=== PATIENT | female | born 1995 | race Caucasian/White ===

== ENCOUNTER 2016-06-25 12:02 | Emergency (ER) | payer OTHER, BC ==
[2016-06-25 12:20] VITALS: BP 132/83
--- NOTE | 2016-06-25 12:57 | UC ---
Allergic Reaction HPI - HPI Summary HPI Summary: SIX DAYS OF SINUS CONGESTION, NONPRODUCTIVE COUGH, NO FEVER. NO SORE THROAT. HAD AMOXICILLIN TAB, TOOK ONE TAB YESTERDAY. LAST NIGHT DEVELOPED ITCHY RASH ALL OVER BODY. NO THROAT TIGHTNESS OR SHORTNESS OF BREATH. - History of Current Complaint Chief Complaint: UCRespiratory Stated Complaint: SINUS ISSUE RASH Time Seen by Provider: 06/25/16 12:19 Hx Obtained From: Patient Hx Last Menstrual Period: 06/23/16 Onset/Duration: Sudden Onset, Lasting Hours, Still Present Severity Initially: Moderate Severity Currently: Moderate Location: Diffuse Character: Pruritus Associated Signs And Symptoms: Positive: Rash. Negative: Difficulty Breathing, Hoarseness, Lightheadedness, Throat Tightening - Related Hx Possible Reaction To: Medications - Allergies/Home Medications Allergies/Adverse Reactions: Allergies Allergy/AdvReac Type Severity Reaction Status Date / Time No Known Allergies Allergy Verified 07/10/15 19:44 Home Medications: Home Medications Amoxicillin (*) [Amoxicillin 875 MG (*)] 875 mg PO BID 06/25/16 [History Confirmed 06/25/16] PMH/Surg Hx/FS Hx/Imm Hx Previously Healthy: Yes Endocrine History Of: Denies: Diabetes, Thyroid Disease Cardiovascular History Of: Denies: Cardiac Disorders, Hypertension, Pacemaker/ICD Respiratory History Of: Reports: Asthma Denies: COPD GI/ History Of: Denies: Gastroesophageal Reflux, Renal Disease Neurological History Of: Denies: CVA, Dementia, Seizures Other History Of: Negative For: Anticoagulant Therapy - Surgical History Surgical History: None - Family History Known Family History: Positive: Diabetes - Social History Occupation: Employed Full-time Lives: With Family Alcohol Use: None Substance Use Type: None Smoking Status (MU): Never Smoked Tobacco Review of Systems Constitutional: Negative Skin: Rash Eyes: Negative ENT: Nasal Discharge Respiratory: Cough Cardiovascular: Negative Gastrointestinal: Negative Genitourinary: Negative Motor: Negative Neurovascular: Negative Musculoskeletal: Negative Neurological: Negative Psychological: Negative All Other Systems Reviewed And Are Negative: Yes Physical Exam Triage Information Reviewed: Yes Appearance: Well-Appearing, No Pain Distress, Well-Nourished Vital Signs: Initial Vital Signs Temp 97.2 F 06/25/16 12:16 Pulse 121 06/25/16 12:16 Resp 18 06/25/16 12:16 BP 132/83 06/25/16 12:16 Pulse Ox 99 06/25/16 12:16 ENT: Positive: Normal ENT inspection, Pharynx normal, Nasal congestion, TMs normal. Negative: TM bulging, TM dull Dental Exam: Normal Neck exam: Normal Neck: Positive: Supple, Nontender, No Lymphadenopathy Respiratory Exam: Normal Respiratory: Positive: Chest non-tender, Lungs clear, Normal breath sounds, No respiratory distress, No accessory muscle use Cardiovascular Exam: Normal Cardiovascular: Positive: RRR, No Murmur, Pulses Normal Abdominal Exam: Normal Musculoskeletal Exam: Normal Musculoskeletal: Positive: Strength Intact Neurological Exam: Normal Psychological Exam: Normal Psychological: Positive: Normal Response To Family Allergic Reaction Course/Dx - Differential Dx/Diagnosis Differential Diagnosis/HQI/PQRI: Local Allergic Reaction, Jimenez-Johnsons Syndrome, Urticaria Provider Diagnoses: UPPER RESPIRATORY INFECTION. GENERALIZED ALLERGIC MEDICATION REACTION: AMOXICILLIN Discharge - Discharge Plan Condition: Stable Disposition: HOME Prescriptions: predniSONE TAB* [Deltasone TAB*] 10 mg PO DAILY #28 tab Patient Education Materials: Upper Respiratory Infection (ED), Antibiotic Medication Allergy (ED) Referrals: Mariola Cross MD [Primary Care Provider] -
== END 2016-06-25 12:57 | disposition home or self-care (01) ==
LOC: UCEAST 12:02
DX: J06.9 Acute upper respiratory infection, unspecified (principal); L27.0 Generalized skin eruption due to drugs and medicaments taken internally; T36.0X5A Adverse effect of penicillins, initial encounter; Y92.9 Unspecified place or not applicable; J45.909 Unspecified asthma, uncomplicated
CPT/HCPCS: 99212; G0463

== ENCOUNTER 2017-04-28 09:39 | Emergency (ER) | payer OTHER, BC ==
[2017-04-28 10:11] VITALS: BP 133/62
[2017-04-28] MEDS ORDERED: Ketorolac INJ* 60 MG/2 ML VIAL IM ONE (10:18)
[2017-04-28] MEDS ORDERED: Clindamycin CAP* 150 MG PO ONE (10:20)
[2017-04-28] MEDS ORDERED: Dexamethasone Oral Solution* 1 MG/ML 10 ML UDC (10 MG) PO ONE (10:20)
--- NOTE | 2017-04-28 10:22 | ED ---
Throat Pain/Nasal Congestion - HPI Summary HPI Summary: 21F presents with sore throat since last night. She states is is mostly on right side and radiates to right ear. She admits to fever. She has been having difficulty swallowing but is still able to do so. she denies any SOB. She has been taking tyenlol for her fever. She denies any sinus congestion. She denies any cough. She admits to fatigue. She denies any abdominal pain, nausea or vomiting. She has history of strept. - History of Current Complaint Chief Complaint: UCGeneralIllness Time Seen by Provider: 04/28/17 10:12 - Allergies/Home Medications Allergies/Adverse Reactions: Allergies Allergy/AdvReac Type Severity Reaction Status Date / Time amoxicillin Allergy Intermediate Rash Verified 04/28/17 10:06 Home Medications: Home Medications Acetaminophen [Tylenol Extra Strength] 2 tab PO Q12HR PRN 04/28/17 [History Confirmed 04/28/17] PMH/Surg Hx/FS Hx/Imm Hx Endocrine/Hematology History: Denies: Hx Anticoagulant Therapy, Hx Diabetes, Hx Thyroid Disease Cardiovascular History: Denies: Hx Hypertension, Hx Pacemaker/ICD Respiratory History: Reports: Hx Asthma Denies: Hx Chronic Obstructive Pulmonary Disease (COPD) History: Denies: Hx Renal Disease Neurological History: Denies: Hx Dementia, Hx Seizures Psychiatric History: Denies: Hx Substance Abuse - Surgical History Surgery Procedure, Year, and Place: denies Infectious Disease History: No Infectious Disease History: Reports: Hx Shingles Denies: Hx Clostridium Difficile, Hx Hepatitis, Hx Human Immunodeficiency Virus (HIV), Hx of Known/Suspected MRSA, Hx Tuberculosis, Traveled Outside the [place] in Last 30 Days - Family History Known Family History: Positive: Diabetes - Social History Alcohol Use: None Substance Use Type: Reports: None Smoking Status (MU): Never Smoked Tobacco Review of Systems Positive: Fever Positive: Sore Throat Negative: Chest Pain Negative: Shortness Of Breath All Other Systems Reviewed And Are Negative: Yes Physical Exam Triage Information Reviewed: Yes Vital Signs On Initial Exam: Initial Vitals Temp Pulse Resp BP Pulse Ox 98.4 F 131 22 133/62 98 04/28/17 10:06 04/28/17 10:06 04/28/17 10:06 04/28/17 10:06 04/28/17 10:06 Vital Signs Reviewed: Yes Appearance: Positive: Well-Appearing Skin: Positive: Warm, Dry Head/Face: Positive: Normal Head/Face Inspection Eyes: Positive: Normal, EOMI, LITZY, Conjunctiva Clear ENT: Positive: Pharyngeal erythema, TMs normal, Tonsillar swelling - +2, Uvula midline, Other - soft palate symmetric, tonsils asymmetric right>left. Negative : Tonsillar exudate, Trismus, Muffled voice Neck: Positive: Supple, Nontender, No Lymphadenopathy Respiratory/Lung Sounds: Positive: Clear to Auscultation, Breath Sounds Present Cardiovascular: Positive: Normal, RRR Abdomen Description: Positive: Nontender, Soft Bowel Sounds: Positive: Present Musculoskeletal: Positive: Normal Neurological: Positive: Normal Psychiatric: Positive: Normal Diagnostics - Vital Signs Vital Signs Temp Pulse Resp BP Pulse Ox 04/28/17 10:06 98.4 F 131 22 133/62 98 - Laboratory Lab Statement: Any lab studies that have been ordered have been reviewed, and results considered in the medical decision making process. EENT Course/Dx - Course Course Of Treatment: 21F presents with sore throat since last night. She states is is mostly on right side and radiates to right ear. She admits to fever. She has been having difficulty swallowing but is still able to do so. she denies any SOB. She has been taking tyenlol for her fever. She denies any sinus congestion. She denies any cough. She admits to fatigue. She denies any abdominal pain, nausea or vomiting. She has history of strept. lungs CTA. uvula still midline, right tonsils asymmetric, no trimsus, managing airway well. soft palate symmetric. looks like could be peristonsillar cellulitis as this point. due to location (urgent care) will not attempt to drain it. gave dose of clindamycin and decadron. patient feeling better. strept pos. spoke with dr mueller who will see in office today as may be peristonsillar abscess. at discharge still managing airway well. will have continue clindamycin and prednisone. patient understand and agrees wiht plan. - Differential Diagnoses Differential Diagnoses: URI/Bronchitis, Other - strept, peritonsillar abscess and cellulitis - Diagnoses Provider Diagnoses: Streptococcal sore throat Discharge - Discharge Plan Condition: Stable Disposition: HOME Prescriptions: Clindamycin HCl 300 mg PO TID #29 capsule Magic Mouth Was-DAISY/MAAL/LIDO* 5 ml SWISH SPIT QID #100 ml predniSONE TAB* [Deltasone TAB*] 20 mg PO BID #9 tab Patient Education Materials: Strep Throat (ED) Referrals: Mariola Cross MD [Primary Care Provider] - Ivan Mueller MD [Medical Doctor] - Additional Instructions: You have appointment at [address] [place] [address] at 3:30pm arrive at 3:[address] mueller Take clindamycin three times a day for 10 days Take prednisone twice a day for 5 days Magic mouthwash 5ml swish and spit can use 4x a day Take Tylenol or ibuprofen for pain every 6 hours Return to ED if develop any new or worsening symptoms
[2017-04-28] MEDS ORDERED: Dexamethasone IV* 4 MG/ML 1 ML (4 MG) IM ONE (10:27)
== END 2017-04-28 10:59 | disposition home or self-care (01) ==
LOC: UCEAST 09:39
DX: J02.0 Streptococcal pharyngitis (principal); J45.909 Unspecified asthma, uncomplicated; Z88.1 Allergy status to other antibiotic agents
CPT/HCPCS: 87651; 99212; A9270-GY; G0463; J1100; J1885

== ENCOUNTER 2017-07-03 16:42 | Emergency (ER) | payer OTHER, BC ==
[2017-07-03 16:54] VITALS: BP 143/81
--- NOTE | 2017-07-03 18:07 | ED ---
GI/ HPI - HPI Summary HPI Summary: patient is a 21-year-old female with a history of UTI who presents to the with chief complaint of burning with urination, suprapubic pressure 2 days. She states this feels similar to her previous UTIs. Denies any hematuria. Denies any obstructive symptoms. Denies any history of kidney stones, pyelonephritis. Denies any fevers, sweats, chills. 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 There is no tearing or purulent drainage. - History of Current Complaint Chief Complaint: UCGI Time Seen by Provider: 07/03/17 17:00 Stated Complaint: BURNING URINATION Hx Obtained From: Patient Hx Last Menstrual Period: 05/09/17 Onset/Duration: Started Hours Ago Timing: Constant Severity: Mild Current Severity: Mild Pain Intensity: 0 Associated Signs and Symptoms: Positive: UTI Symptoms Aggravating Factor(s): Voiding, Straining Alleviating Factor(s): Nothing - Allergy/Home Medications Allergies/Adverse Reactions: Allergies Allergy/AdvReac Type Severity Reaction Status Date / Time No Known Allergies Allergy Verified 07/03/17 16:55 PMH/Surg Hx/FS Hx/Imm Hx Previously Healthy: Yes Endocrine/Hematology History: Denies: Hx Anticoagulant Therapy, Hx Diabetes, Hx Thyroid Disease Cardiovascular History: Denies: Hx Hypertension, Hx Pacemaker/ICD Respiratory History: Reports: Hx Asthma Denies: Hx Chronic Obstructive Pulmonary Disease (COPD) GI History: Denies: Hx Ulcer History: Denies: Hx Renal Disease Neurological History: Denies: Hx Dementia, Hx Seizures Psychiatric History: Denies: Hx Substance Abuse - Surgical History Surgery Procedure, Year, and Place: denies Infectious Disease History: No Infectious Disease History: Reports: Hx Shingles Denies: Hx Clostridium Difficile, Hx Hepatitis, Hx Human Immunodeficiency Virus (HIV), Hx of Known/Suspected MRSA, Hx Tuberculosis, Traveled Outside the [place] in Last 30 Days - Family History Known Family History: Positive: Diabetes - Social History Occupation: Employed Full-time Lives: With Family Alcohol Use: None Substance Use Type: Reports: None Hx Tobacco Use: No Smoking Status (MU): Never Smoked Tobacco Review of Systems Negative: Fever, Chills, Fatigue, Skin Diaphoresis Eyes: Negative Negative: Epistaxis, Dental Pain Cardiovascular: Negative Respiratory: Negative Positive: burning, dysuria, frequency. Negative: hematuria Musculoskeletal: Negative Skin: Negative Neurological: Negative All Other Systems Reviewed And Are Negative: Yes Physical Exam Triage Information Reviewed: Yes Vital Signs On Initial Exam: Initial Vitals Temp Pulse Resp BP Pulse Ox 97.2 F 83 18 143/81 100 07/03/17 16:48 07/03/17 16:48 07/03/17 16:48 07/03/17 16:48 07/03/17 16:48 Vital Signs Reviewed: Yes Appearance: Positive: Well-Appearing, Well-Nourished Skin: Positive: Warm, Skin Color Reflects Adequate Perfusion Head/Face: Positive: Normal Head/Face Inspection Eyes: Positive: EOMI, LITZY, Conjunctiva Clear Neck: Positive: Supple, Nontender, No Lymphadenopathy Respiratory/Lung Sounds: Positive: Clear to Auscultation, Breath Sounds Present Cardiovascular: Positive: RRR, Pulses are Symmetrical in both Upper and Lower Extremities - ED Musculoskeletal: Positive: Normal, Strength/ROM Intact Neurological: Positive: Normal, Sensory/Motor Intact Psychiatric: Positive: Normal, Affect/Mood Appropriate AVPU Assessment: Alert Diagnostics - Vital Signs Vital Signs Temp Pulse Resp BP Pulse Ox 07/03/17 16:48 97.2 F 83 18 143/81 100 - Laboratory Lab Results: Lab Results 07/03/17 Range/Units 17:04 POC Urine Color Yellow POC Urine Clarity Clear POC Urine pH 6.0 (5-9) POC Ur Specif [place] 1.010 (1.010-1.030) POC Urine Protein Negative (Negative) POC Ur Glucose (UA) Negative (Negative) POC Urine Ketones Negative (Negative) POC Urine Blood Trace-intact A (Negative) POC Urine Nitrite Negative (Negative) POC Urine Bilirubin Negative (Negative) POC Urine Urobilinogen 0.2 (Negative) POC U Leukocyte Esteras 2+ A (Negative) Lab Statement: Any lab studies that have been ordered have been reviewed, and results considered in the medical decision making process. GIGU Course/Dx - Course Course Of Treatment: During the course of treatment, the patient's evaluated for UTI symptoms as well as conjunctivitis symptoms. UA obtained which shows 2 + leukocytes. Suprapubic pain and burning with urination present. The right eye has some swelling to the right upper lid without focal tenderness or erythematous area suggestive of a stye. I have given patient's Keflex for UTI as well as Pyridium for any urinary discomfort. She is also given polymyxin drops for right eye conjunctivitis. There is no injection or drainage from the area, but there was copious amount of drainage this morning as well as lid swelling. For this, I have given her this prescription and she will fill it if she has any worsening symptoms inclusive of injection or drainage. - Diagnoses Differential Diagnoses - Female: Urinary Tract Infection - He he no Provider Diagnoses: UTI (urinary tract infection) Discharge - Sign-Out/Discharge Documenting (check all that apply): Discharge/Admit/Transfer - Discharge Plan Condition: Stable Disposition: HOME Prescriptions: Cephalexin CAP* [Keflex CAP*] 500 mg PO QID #20 cap Phenazopyridine TAB* [Pyridium 100 mg TAB*] 100 mg PO TID #12 tab Polymyx/Trimethoprim OPTH* [Polytrim OPHTH*] 1 drop RIGHT EYE Q3H #1 btl Patient Education Materials: Urinary Tract Infection in Women (ED) Referrals: Mariola Cross MD [Primary Care Provider] - Additional Instructions: Pyridium as needed for urinary symptoms Keflex 4 times daily 5 days Have given you a prescription for polymyxin eyedrops for any worsening conjunctivitis symptoms - Billing Disposition and Condition Condition: STABLE Disposition: HOME
--- NOTE | 2017-07-04 19:07 | PN ---
Progress Note - Progress Note Date of Service: 07/04/17 Note: Patient placed on Keflex at d/c. Escherichia coli [id number] grew on preliminary urine culture. Will wait for final culture for sensitivity. No change at this time.
== END 2017-07-03 17:20 | disposition home or self-care (01) ==
LOC: UCEAST 16:42
DX: N39.0 Urinary tract infection, site not specified (principal); B96.20 Unspecified Escherichia coli [E. coli] as the cause of diseases classified elsewhere; Z87.440 Personal history of urinary (tract) infections; H10.31 Unspecified acute conjunctivitis, right eye; J45.909 Unspecified asthma, uncomplicated
CPT/HCPCS: 81003; 87077; 87086; 87186; 99212; G0463

== ENCOUNTER 2017-12-05 18:24 | Emergency (ER) | payer OTHER, BC ==
[2017-12-05 18:38] VITALS: BP 130/75
--- NOTE | 2017-12-05 19:31 | UC ---
Lower Extremity/Ankle HPI - HPI Summary HPI Summary: 22-year-old female presents with complaints of right foot and ankle pain after slipping down 2 stairs causing an inversion injury 2 days ago. She was been able to bear weight and ambulate immediately after the injury as well as here in the clinic. Associated with some mild swelling and bruising. Denies numbness or tingling. - History of Current Complaint Chief Complaint: UCLowerExtremity Stated Complaint: FOOT AND ANKLE INJURY Time Seen by Provider: 12/05/17 19:08 Hx Obtained From: Patient Hx Last Menstrual Period: 11/27/17 ?: No Onset/Duration: Sudden Onset Severity Initially: Moderate Severity Currently: Moderate Pain Intensity: 5 Aggravating Factor(s): Standing, Ambulation Alleviating Factor(s): Rest Able to Bear Weight: Yes - Allergies/Home Medications Allergies/Adverse Reactions: Allergies Allergy/AdvReac Type Severity Reaction Status Date / Time No Known Allergies Allergy Verified 12/05/17 18:37 PMH/Surg Hx/FS Hx/Imm Hx Previously Healthy: Yes - denies significant past medical history Other History Of: Negative For: Anticoagulant Therapy - Surgical History Surgical History: None Surgery Procedure, Year, and Place: denies - Family History Known Family History: Positive: Diabetes Family History: Noncontributory - Social History Occupation: Student Lives: With Family Alcohol Use: None Substance Use Type: None Smoking Status (MU): Never Smoked Tobacco - Immunization History Most Recent Tetanus Shot: UTD Review of Systems Constitutional: Negative Skin: Bruising Motor: Negative Neurovascular: Negative Musculoskeletal: Other: - See history of present illness Is Patient Immunocompromised?: No All Other Systems Reviewed And Are Negative: Yes Physical Exam Triage Information Reviewed: Yes Appearance: Well-Appearing, No Pain Distress, Well-Nourished Vital Signs: Initial Vital Signs Temp 98.3 F 12/05/17 18:33 Pulse 77 12/05/17 18:33 Resp 12 12/05/17 18:33 BP 130/75 12/05/17 18:33 Pulse Ox 99 12/05/17 18:33 Respiratory: Positive: No respiratory distress Cardiovascular: Positive: Pulses Normal, Brisk Capillary Refill Musculoskeletal: Positive: Strength Intact, ROM Intact, Other: - Mild tenderness over third and fourth and fifth metatarsals the right foot. No crepitus or gross deformity noted. Mild swelling the right lateral malleolus without tenderness, crepitus, or deformity. Neurological: Positive: Alert, Other: - Sensation intact distally Skin: Positive: Other - Mild ecchymosis noted to lateral right foot. Diagnostics - Radiology No standard instances Xray Interpretation: No Acute Changes Radiology Interpretation Completed By: ED Physician Lower Extremity Course/Dx - Course Course Of Treatment: 22-year-old female with right foot and ankle pain slipping and falling down 2 stairs. On exam she had tenderness over the third fourth and fifth metatarsals. There was some mild swelling of the lateral malleolus however nontender. No obvious deformities. X-ray of right foot showed no evidence of fracture. Recommend conservative treatment with [id number] analgesics and RICE. She is to follow-up with her primary care provider in 2 weeks if symptoms persist. - Differential Dx/Diagnosis Differential Diagnosis/HQI/PQRI: Contusion, Fracture (Closed), Sprain, Strain Provider Diagnoses: Right foot injury Discharge - Sign-Out/Discharge Documenting (check all that apply): Patient Departure All imaging exams completed and their final reports reviewed: No - Discharge Plan Condition: Stable Disposition: HOME Patient Education Materials: Foot Sprain (ED) Referrals: Mariola Cross MD [Primary Care Provider] - 2 Weeks (If symptoms persist.) Additional Instructions: The X-ray of your appointment performed in the clinic today did not show any evidence of a fracture or dislocation. The x-ray will be reviewed by a radiologist tomorrow. We will contact you if there are any findings upon the review. He may take acetaminophen (Tylenol) or ibuprofen (Advil, Motrin) according to directions as needed for pain. Rest the foot as much as possible. You may continue to walk and bear weight as tolerated. Apply ice to the affected area for 15-20 minutes 3-4 times a day for the next several days. Keep the foot elevated to help reduce any swelling. Follow-up with your primary care provider in 2 weeks if symptoms persist. Your blood pressure in the clinic today was slightly elevated and I would recommend following up with your primary care provider to have this rechecked. - Billing Disposition and Condition Condition: STABLE Disposition: Home
--- NOTE | 2017-12-06 07:41 | RAD ---
HISTORY: pain s/p fall down stairs COMPARISONS: None VIEWS: 3 , Frontal, lateral, and oblique views of the right foot FINDINGS: BONE DENSITY: Normal. BONES: There is no displaced fracture. JOINTS: There is no arthropathy. ALIGNMENT: There is no dislocation. SOFT TISSUES: Unremarkable. OTHER FINDINGS: None. IMPRESSION: NO ACUTE OSSEOUS INJURY. IF SYMPTOMS PERSIST, RECOMMEND REPEAT IMAGING. R0
--- NOTE | 2017-12-06 08:33 | UC ---
- Progress Note Progress Note: final xray report: no acute fracture of right foot Discharge - Sign-Out/Discharge Documenting (check all that apply): Post-Discharge Follow Up All imaging exams completed and their final reports reviewed: Yes - Discharge Plan Condition: Stable Disposition: HOME Patient Education Materials: Foot Sprain (ED) Referrals: Mariola Cross MD [Primary Care Provider] - 2 Weeks (If symptoms persist.) Additional Instructions: The X-ray of your appointment performed in the clinic today did not show any evidence of a fracture or dislocation. The x-ray will be reviewed by a radiologist tomorrow. We will contact you if there are any findings upon the review. He may take acetaminophen (Tylenol) or ibuprofen (Advil, Motrin) according to directions as needed for pain. Rest the foot as much as possible. You may continue to walk and bear weight as tolerated. Apply ice to the affected area for 15-20 minutes 3-4 times a day for the next several days. Keep the foot elevated to help reduce any swelling. Follow-up with your primary care provider in 2 weeks if symptoms persist. Your blood pressure in the clinic today was slightly elevated and I would recommend following up with your primary care provider to have this rechecked. - Billing Disposition and Condition Condition: STABLE Disposition: Home
== END 2017-12-05 19:44 | disposition home or self-care (01) ==
LOC: UCEAST 18:24
DX: S99.921A Unspecified injury of right foot, initial encounter (principal); X50.1XXA Overexertion from prolonged static or awkward postures, initial encounter; Y93.9 Activity, unspecified; Y92.9 Unspecified place or not applicable
CPT/HCPCS: 99211; G0463

== ENCOUNTER 2018-04-27 17:29 | Emergency (ER) | payer BC, OTHER ==
[2018-04-27 17:55] VITALS: BP 150/97
--- NOTE | 2018-04-27 18:43 | ED ---
Influenza-Like Illness - HPI Summary HPI Summary: 22 year old female presents with cough for the past 4 days. She admits occasional shortness of breath. No chest pain. States that her child was diagnosis diagnosed with pneumonia. She admits to occasional sore throat. She did have a fever that has since resolved. No abd pain nausea vomiting. She denies any headache. Has been taking Tylenol for symptoms. Has no medical conditions. Nonsmoker. - History of Current Complaint Chief Complaint: UCRespiratory Time Seen by Provider: 04/27/18 18:24 - Allergy/Home Medications Allergies/Adverse Reactions: Allergies Allergy/AdvReac Type Severity Reaction Status Date / Time No Known Allergies Allergy Verified 04/27/18 17:55 PMH/Surg Hx/FS Hx/Imm Hx Endocrine/Hematology History: Denies: Hx Anticoagulant Therapy, Hx Diabetes, Hx Thyroid Disease Cardiovascular History: Denies: Hx Hypertension, Hx Pacemaker/ICD Respiratory History: Reports: Hx Asthma Denies: Hx Chronic Obstructive Pulmonary Disease (COPD) GI History: Denies: Hx Ulcer History: Denies: Hx Renal Disease Neurological History: Denies: Hx Dementia, Hx Seizures Psychiatric History: Denies: Hx Substance Abuse - Surgical History Surgery Procedure, Year, and Place: denies Infectious Disease History: No Infectious Disease History: Reports: Hx Shingles Denies: Hx Clostridium Difficile, Hx Hepatitis, Hx Human Immunodeficiency Virus (HIV), Hx of Known/Suspected MRSA, Hx Tuberculosis, Traveled Outside the in Last 30 Days - Family History Known Family History: Positive: Diabetes Family History: Noncontributory - Social History Alcohol Use: None Substance Use Type: Reports: None Hx Tobacco Use: No Smoking Status (MU): Never Smoked Tobacco Review of Systems Positive: Fever Negative: Chest Pain Positive: Shortness Of Breath Negative: Abdominal Pain All Other Systems Reviewed And Are Negative: Yes Physical Exam Triage Information Reviewed: Yes Vital Signs On Initial Exam: Initial Vitals Temp Pulse Resp BP Pulse Ox 98.5 F 77 16 150/97 100 04/27/18 17:49 04/27/18 17:49 04/27/18 17:49 04/27/18 17:49 04/27/18 17:49 Vital Signs Reviewed: Yes Appearance: Positive: Well-Appearing Skin: Positive: Warm, Dry Head/Face: Positive: Normal Head/Face Inspection Eyes: Positive: Normal, EOMI, LITZY, Conjunctiva Clear ENT: Positive: Normal ENT inspection, Pharynx normal, TMs normal Respiratory/Lung Sounds: Positive: Clear to Auscultation, Breath Sounds Present Cardiovascular: Positive: Normal, RRR Abdomen Description: Positive: Nontender, Soft Bowel Sounds: Positive: Present Musculoskeletal: Positive: Normal Neurological: Positive: Normal Psychiatric: Positive: Normal Diagnostics - Vital Signs Vital Signs Temp Pulse Resp BP Pulse Ox 04/27/18 17:49 98.5 F 77 16 150/97 100 - Laboratory Lab Statement: Any lab studies that have been ordered have been reviewed, and results considered in the medical decision making process. - Radiology chest Radiology Interpretation Completed By: ED Physician Summary of Radiographic Findings: no pneumonia Flu Symptom Course/Dx - Course Course Of Treatment: 22 year old female presents with cough for the past 4 days. She admits occasional shortness of breath. No chest pain. States that her child was diagnosis diagnosed with pneumonia. She admits to occasional sore throat. She did have a fever that has since resolved. No abd pain nausea vomiting. She denies any headache. Has been taking Tylenol for symptoms. Has no medical conditions. Nonsmoker. On exam lungs clear to auscultation. Chest x-ray read by me as normal. We'll treat supportively with inhaler and Tessalon. will have follow up with primary about blood pressure as is elevated at this time. Patient understands and agrees plan. - Diagnoses Differential Diagnosis/HQI/PQRI: Positive: Bronchitis, Influenza, Pneumonia, Upper Respiratory Infection Provider Diagnoses: Bronchitis Discharge - Sign-Out/Discharge Documenting (check all that apply): Patient Departure All imaging exams completed and their final reports reviewed: No - Discharge Plan Condition: Good Disposition: HOME Prescriptions: Albuterol HFA INHALER* [Ventolin HFA Inhaler*] 1 puff INH Q6H PRN #1 mdi PRN Reason: Cough Benzonatate CAP* [Tessalon 100 MG CAP*] 100 mg PO TID PRN #21 cap PRN Reason: Cough Patient Education Materials: Acute Bronchitis (ED) Referrals: Mariola Cross MD [Primary Care Provider] - Additional Instructions: Use Tessalon three times a day for cough Use inhaler one puff every 4 hours for cough as needed Follow up with primary care physician in 5 days Return to ED if develop chest pain or shortness of breath or any new or worsening symptoms - Billing Disposition and Condition Condition: GOOD Disposition: Home - Attestation Statements Provider Attestation: I was available for consult. This patient was seen by the KAR. The patient was not presented to, seen by, or examined by me. -Shahriar
--- NOTE | 2018-04-28 12:00 | UC ---
- Progress Note Progress Note: Patient Name: NICOLE VILLARREAL Medical Record#: [id number] Ordering Physician: Kristyn MILLS Acct.#: [id number] : 1995 Age: 22 Sex: F Location: [facility] Exam Date: 04/27/18 1833 ADM Status: DEP ER Order Information: CHEST PA & LAT 2 VWS Accession Number: [id number] CPT: 34110 INDICATION: Shortness of breath and cough. COMPARISON: There are no relevant prior studies available for comparison. TECHNIQUE: Dual-energy PA and lateral views of the chest were obtained. FINDINGS: The heart is within normal limits in size. Mediastinal and hilar contours appear within normal limits. The lungs are clear. No pleural effusion is present. IMPRESSION: NO EVIDENCE FOR ACTIVE CARDIOPULMONARY DISEASE. R0 Preliminary Imaging Read R0 <Electronically signed by Nilesh Santacruz MD in OV> 04/28/18731 Dictated By: Nilesh Santacruz MD Dictated Date/Time: 04/28/18731 Transcribed Date/Time: 04/28/18730 Copy to: CC:Mariola Cross MD; Kristyn MILLS; Erica Khalil MD [facility] Imaging - [facility] [address] [address] ph ([phone]) ph ([phone]) ph ([phone]) This report is only to be considered final once signed by the Provider(s) as displayed in the "<Electronically Signed by >" field (s). Absence of a signature indicates the report is in a draft status and still needs to be finalized. In the event this document was created by someone other than the signing Provider, the individual initiating the document will be listed in the "Entered by:" or "Dictated by:" [email or web address]. 1 of 1 Course/Dx - Diagnoses Provider Diagnoses: Bronchitis Discharge - Sign-Out/Discharge Documenting (check all that apply): Post-Discharge Follow Up All imaging exams completed and their final reports reviewed: Yes - Discharge Plan Condition: Good Disposition: HOME Prescriptions: Albuterol HFA INHALER* [Ventolin HFA Inhaler*] 1 puff INH Q6H PRN #1 mdi PRN Reason: Cough Benzonatate CAP* [Tessalon 100 MG CAP*] 100 mg PO TID PRN #21 cap PRN Reason: Cough Patient Education Materials: Acute Bronchitis (ED) Referrals: Mariola Cross MD [Primary Care Provider] - Additional Instructions: Use Tessalon three times a day for cough Use inhaler one puff every 4 hours for cough as needed Follow up with primary care physician in 5 days Return to ED if develop chest pain or shortness of breath or any new or worsening symptoms - Billing Disposition and Condition Condition: GOOD Disposition: Home
== END 2018-04-27 19:30 | disposition home or self-care (01) ==
LOC: UCEAST 17:29
DX: J40 Bronchitis, not specified as acute or chronic (principal)
CPT/HCPCS: 71046; 99212; G0463

== ENCOUNTER 2018-05-03 14:01 | Emergency (ER) | payer OTHER ==
[2018-05-03 14:14] VITALS: BP 128/88
--- NOTE | 2018-05-03 14:40 | UC ---
Respiratory Complaint HPI - HPI Summary HPI Summary: was seen 04/27/18 for cough, dx with bronchitis and Rx'd tesselon perles and ProAir. is not getting better. cough worse, no fever that she knows of. also sees rash today on arms and abd-not itchy or painful - History of Current Complaint Chief Complaint: UCRespiratory Stated Complaint: URI Time Seen by Provider: 05/03/18 14:28 Hx Obtained From: Patient Hx Last Menstrual Period: 04/27/18 ?: No Onset/Duration: Gradual Onset Timing: Constant Severity Initially: Mild Severity Currently: Moderate Pain Intensity: 4 Character: Cough: Nonproductive Aggravating Factors: Deep Breaths Alleviating Factors: Nothing Associated Signs And Symptoms: Positive: Wheezing, Nasal Congestion - Allergies/Home Medications Allergies/Adverse Reactions: Allergies Allergy/AdvReac Type Severity Reaction Status Date / Time No Known Allergies Allergy Verified 05/03/18 14:14 PMH/Surg Hx/FS Hx/Imm Hx Previously Healthy: Yes Respiratory History: Asthma Other History Of: Negative For: Anticoagulant Therapy - Surgical History Surgical History: None Surgery Procedure, Year, and Place: denies - Family History Known Family History: Positive: Diabetes Family History: Noncontributory - Social History Occupation: Employed Full-time - day care Lives: With Family Alcohol Use: None Substance Use Type: None Smoking Status (MU): Never Smoked Tobacco - Immunization History Most Recent Tetanus Shot: UTD Review of Systems All Other Systems Reviewed And Are Negative: Yes Constitutional: Positive: Negative Respiratory: Positive: Cough. Negative: Shortness Of Breath Cardiovascular: Positive: Negative Musculoskeletal: Positive: Negative Neurological: Positive: Negative Is Patient Immunocompromised?: No Physical Exam Triage Information Reviewed: Yes Appearance: Well-Appearing, No Pain Distress, Obese Vital Signs: Initial Vital Signs Temp 97.6 F 05/03/18 14:10 Pulse 87 05/03/18 14:10 Resp 18 05/03/18 14:10 BP 128/88 05/03/18 14:10 Pulse Ox 98 05/03/18 14:10 Vital Signs Reviewed: Yes Eye Exam: Normal ENT: Positive: Pharynx normal, Nasal congestion, TMs normal Respiratory: Positive: Wheezing, Other: - harsh dry cough Cardiovascular Exam: Normal Cardiovascular: Positive: RRR Musculoskeletal Exam: Normal Neurological Exam: Normal Psychological Exam: Normal Skin: Positive: Rashes - very faint red blotches (not urticaria) on forearms and abd UC Diagnostic Evaluation - Laboratory O2 Sat by Pulse Oximetry: 98 Respiratory Course/Dx - Differential Dx/Diagnosis Differential Diagnosis/HQI/PQRI: Bronchitis, Influenza, Lower Resp Infection, Sinusitis Provider Diagnosis: Bronchospasm with bronchitis, acute Discharge - Sign-Out/Discharge Documenting (check all that apply): Patient Departure All imaging exams completed and their final reports reviewed: No Studies - Discharge Plan Condition: Stable Disposition: HOME Prescriptions: Azithromycin TAB* [Zithromax TAB (Z-TRINY) 250 mg #6 tabs] 2 tab PO .TODAY, THEN 1 DAILY #1 triny predniSONE TAB* [Deltasone 20 MG TAB*] 40 mg PO DAILY #10 tab Patient Education Materials: Acute Bronchitis (ED), Wheezing (ED) Referrals: Mariola Cross MD [Primary Care Provider] - 2 Days (if no better) Additional Instructions: continue Albuterol inhaler as prescribed. start zithromax and prednisone stop cough gels (tesselon perles) rest and drink plenty of fluids return for shortness of breath or worsening cough - Billing Disposition and Condition Condition: STABLE Disposition: Home
== END 2018-05-03 14:54 | disposition home or self-care (01) ==
LOC: UCEAST 14:01
DX: J20.9 Acute bronchitis, unspecified (principal); R21 Rash and other nonspecific skin eruption
CPT/HCPCS: 99212; G0463

== ENCOUNTER 2019-02-10 17:13 | Emergency (ER) | payer OTHER, BC ==
--- OUTSIDE RECORDS SUMMARY | 2019-02-10 17:18 | XMS REPORT | Continuity of Care Document ---
:1995 External Reference #:[id number] Author Name LINA Dobbs Address [address] [place] [address] Care Team Providers Name Role Phone Joanne Fuentes M.D. - Family Medicine Care Team Information Racecourse Barrier Attendant Unavailable [facility] - Care Team Information Racecourse Barrier Attendant Manager Utilization Problems Active Problems Provider Date Moderate recurrent major depression Joanne Fuentes M.D. Onset: 10/28/2018 Obesity Joanne Fuentes M.D. Onset: 10/28/2018 Social History Type Date Description Comments Sex Unknown Tobacco Use Start: Unknown Denies Tobacco Use ETOH Use Rare Recreational Drug Use Denies Drug Use Tobacco Use Start: Unknown Patient has never smoked Smoking Status Reviewed: 01/05/19 Patient has never smoked Allergies, Adverse Reactions, Alerts Description No Known Drug Allergies Medications Active Medications SIG Qnty Indications Ordering Provider Date Augmentin take 1 tablet 14tabs H66.93 Shekhar Flores, 01/05/2019 875-125mg every 12 hours M.D. Tablets for 7 days Sertraline HCL 1 by mouth every 30tabs F33.1 Joanne Fuentes M.D. 10/28/2018 50mg day Tablets History Medications No Active Medications Unknown 10/28/2018 - 10/28/2018 Erythromycin 1/4 inch strip 3.500gm H00.012 Joanne Fuentes 10/28/2018 - 5mg/GM to porsha garcia M.D. 12/02/2018 Ointment eyelid three times a day until clear , do not exceed 7 days use Immunizations CPT Code Status Date Vaccine Lot # [id number] Given 12/05/2015 Influenza Vac, Quadriv[place], [place] [id number] Given 09/08/2012 Tdap Tetanus, W Pertussis Vital Signs Date Vital Result Comment 01/05/2019 5:05pm BP Systolic 106 mmHg BP Diastolic 80 mmHg Heart Rate 74 /min Body Temperature 97.7 F Respiratory Rate 12 /min Height 65 inches 5'5" Weight 241.00 lb BMI (Body Mass Index) 40.1 kg/m2 12/02/2018 11:23am BP Systolic 138 mmHg BP Diastolic 80 mmHg Heart Rate 72 /min Body Temperature 97.9 F Respiratory Rate 16 /min Height 65 inches 5'5" Weight 238.00 lb BMI (Body Mass Index) 39.6 kg/m2 Results Test Date Facility Test Result H/L Range Note Laboratory test 12/02/2018 [facility] Cytology SEE RESULT 1 finding Thinprep BELOW w/rfx([facility]) Urine Culture And 10/28/2018 [facility] Urine Culture SEE RESULT 2 Sensitivities BELOW Laboratory test 10/28/2018 Rosario Claribel([facility]) TSH 5.80 mIU/L 0.50-6.00 finding Free T4 0.68 ng/dL Low 0.75-1.54 3 Laboratory test 10/28/2018 [facility] Hemoglobin A1c 5.3 % 4.1-5.7 finding (607)- - ([facility]) Ua - Micro (a) 10/28/2018 [facility] Medicine Appearance YELLOW (607)- - Color CLEAR Glucose, Urine (Fma/CMC/CTX) NEG Bilirubin NEG Ketones NEG SP Grav 1.010 Blood NEG PH 5.5 Protein NEG Urobil 0.2 Nitrite NEG Leukocytes (Fma/CMC/Centrex) NEG Hyaline - /Lpf Granular - /Lpf WBC (Fma,Centrex) 0-1 RBC - Mucus (Fma/CBC/Centrex) - /Lpf Epith FEW /Lpf Bacteria TRACE /Hpf Amorphous (Fma/CMC/Centrex) - /Lpf Crystals, Fluid (Fma/CMC/CTX) - Z#Comments - Comprehensive Metabolic 10/07/2018 Rosario Claribel(a) Sodium 144 mEq/L 134-149 Prof Potassium 4.3 mEq/L 3.6-5.5 Chloride 106 mEq/L 94-112 Carbon Dioxide 22 mEq/L 21-32 Glucose 91 mg/dL 70-105 BUN 8 mg/dL 6-26 Creatinine 0.6 mg/dL 0.6-1.4 BUN/Creat Ratio 13.3 CALC 8.0-36.0 Calcium 9.2 mg/dL 8.6-10.2 Total Protein 6.9 g/dL 6.4-8.3 Albumin 4.6 g/dL 3.8-5.5 Globulin 2.3 g/dL 2.0-4.8 A/G Ratio 2.0 CALC 0.6-2.3 Alk. Phosphatase 56 U/L 30-110 Alt (SGPT) 12 U/L 7-35 Ast (Sgot) 11 U/L 5-34 Total Bilirubin 0.5 mg/dL 0.2-1.3 GFR Non- >60 ml/min/1.73m^ >=60 GFR >60 ml/min/1.73m^ >=60 Lipid Profile 10/07/2018 Abraham Sanford([facility]) Cholesterol 182 mg/dL 120- 200 Triglycerides 121 mg/dL 30-200 HDL Cholesterol 40 mg/dL 30-85 LDL (Calculated) 118 CALC 0-129 VLDL Cholesterol 24 mg/dL 0-50 HDL Risk Factor 4.6 CALC High 0.0-4.4 CBC Electronic Fma 10/07/2018 Abraham Sanford([facility]) WBC 6.4 x10^3/UL 4.0- 10.0 RBC 4.49 x10^6/UL 3.93-6.00 HGB 13.2 g/dL 12.0-17.0 HCT 40 % 35-50 MCV 88.2 fL 80.0-95.0 MCH 29.4 pg 25.6-32.2 MCHC 33.3 g/dL 32.2-36.0 RDW-CV 12.9 % 11.6-14.4 PLT 325 x10^3/UL 163-400 MPV 10.0 fL 9.4-12.4 [place]# 3.54 x10^3/UL 1.56-6.13 Lymph# 2.12 x10^3/UL 1.18-3.74 [place]# 0.49 x10^3/UL 0.24-0.82 Eos # 0.2 x10^3/UL 0.0-0.5 Baso # 0.03 x10^3/UL 0.01-0.08 [place]% 55.3 % 34.0-70.0 Lymph % 33.1 % 20.0-52.0 [place]% 7.7 % 5.0-12.0 Eos% 3.1 % 0.7-7.0 Baso% 0.5 % 0.1-1.2 1 SEE RESULT BELOW Name: NICOLE QUINTANILLA : [address]: Joanne Fuentes MD Acct: [id number] Unit: [id number] AGE: 23 Location: [facility] Re12/02/18 SEX: F Status: REG REF SPEC: [id number] EFRAIN: 12/02/18-[address]: Joanne Fuentes MD REQ: [id number] RECD: 12/02/18 STATUS: SOUT _ ORDERED: TP IMAGE ANALYS, HPV 16/18 GENE COMMENTS: [id number] FINAL DIAGNOSIS Negative for Intraepithelial lesion or Malignancy SPECIMEN(S) RECEIVED A. Ectocervical/Endocervical CYTOLOGY ADEQUACY Specimen Adequacy: Satisfactory of evaluation Transformation zone component identified CYTOLOGY PATIENT INFORMATION Patient Information: HPV: Thin Layer Pap Test w/reflex to high risk HPV RNA testing when ASCUS HPV 16/18 Genotype Reflex Actual Specimen Date: 12/02/18 Last Menstrual Date: 10/11/18 Spec Date if unknown: 2015 Signed by and Reported on: CHICHO De Leon (ASCP) [id number] This Pap test was evaluated with the assistance of the GetBulb Test Imaging System. Due to cytologic findings at the escapement matcher microscope, comprehensive manual rescreening by a Golf Caddy may be required. The Pap Smear is a screening test designed to aid in the detection of premalignant and malignant conditions of the uterine cervix. It is not a diagnostic procedure and should not be used as the sole means of detecting cervical cancer. Both false- positive and false- negative reports do occur. Depending on your risk status, a Pap smear should be obtained and evaluated every 1-3 years. END OF REPORT DEPARTMENT OF PATHOLOGY, [address] [place] [address] Jimbo Duron M.D. Director [facility] # [id number] 2 SEE RESULT BELOW Name: NICOLE QUINTANILLA : [address]: Joanne Fuentes MD Acct: [id number] Unit: [id number] AGE: 23 Location: [facility] Re10/28/18 SEX: F Status: REG REF SPEC: [id number] EFRAIN: 10/28/[address]: Joanne Fuentes MD REQ: [id number] RECD: 10/28/18 STATUS: COMP _ SOURCE: URINE SPDESC: ORDERED: Urine Culture COMMENTS: 1 ALBERT URINE TUBE [id number] Urine Source: Random Procedure Result Reported Site Urine Culture Final 10/29/18- 1605 ML No growth of clinically significant organisms * ML - Main Lab . END OF REPORT DEPARTMENT OF PATHOLOGY, [address] [place] [address] Jimbo Duron M.D. Director [facility] # [id number] 3 RESULTS VERIFIED BY REPEAT ANALYSIS Procedures Description No Information Available Medical Devices Description No Information Available Encounters Type Date Location Provider Dx Diagnosis Office Visit 12/02/2018 [facility] Office Joanne Fuentes, Z01.419 Encntr for senior mechanical design engineer 11:20a M.D. exam (general) (routine) w/o abn findings F33.1 Major depressive disorder, recurrent, moderate Office Visit 10/28/2018 9:00a [facility] Office Joanne Fuentes, E66.9 Obesity, M.D. unspecified F33.1 Major depressive disorder, recurrent, moderate H00.012 Hordeolum externum right lower eyelid N39.41 Urge incontinence M72.2 Plantar fascial fibromatosis Z00.01 Encounter for general adult medical exam w abnormal findings Assessments Date Code Description Provider 01/05/2019 H66.93 Otitis media, unspecified, bilateral Nimisha C Linick, PA 12/02/2018 Z01.419 Encounter for gynecological examination Joanne Fuentes M.D. (general) (routine) without abnormal findings 12/02/2018 F33.1 Major depressive disorder, recurrent, moderate Joanne Fuentes M.D. 10/28/2018 E66.9 Obesity, unspecified Joanne Fuentes M.D. 10/28/2018 F33.1 Major depressive disorder, recurrent, moderate Joanne Fuentes M.D. 10/28/2018 H00.012 Hordeolum externum right lower eyelid Joanne Fuentes M.D. 10/28/2018 N39.41 Urge incontinence Joanne Fuentes M.D. 10/28/2018 M72.2 Plantar fascial fibromatosis Joanne Fuentes M.D. 10/28/2018 Z00.01 Encounter for general adult medical examination Joanne Fuentes M.D. with abnormal findings 10/07/2018 Z00.00 Encntr for general adult medical exam w/o Joanne Fuentes M.D. abnormal findings Plan of Treatment 01/05/2019 - Nimisha Cleary, PAH66.93 Otitis media, unspecified, bilateralNew Medication:Augmentin 875-125 mg - take 1 tablet every 12 hours for 7 daysComments:Start antibiotics as directed. Eat yogurt with probiotics *live cultures daily while on antibiotics.Warm compresses to the ears. Follow up if symptoms worsen or don't improve in the next few days.AllComments: PCMHMedication Management Patient Understands medications he's taking? Yes Are there Barriers to Adherence? No Has the patient been asked about herbal supplements and therapies, and OTC meds? Yes Care Plan1. Patient has been queried about patient's goals/preferences and functional/ lifestyle goals at relevant visits. Yes If relevant, describe: N/A2. Treatment goals as explained to the patient: above3. Are there barriers to meeting treatment goals? No If Yes, please describe:4. Self-Management goals as described to the patient: Yes As always, we strongly encourage a healthy diet and making physical activity a part of your every day life. If you have questions about how or where to start, please contact the office. Functional Status Description No Information Available Mental Status Description No Information Available Referrals Refer to Reason for Referral Status Appt Date [facility] Scheduled 12/23/2018 [address] [place] [address] [phone]
--- NOTE | 2019-02-10 18:01 | UC ---
Throat Pain/Nasal Leonard HPI - HPI Summary HPI Summary: 23 yo female presents with sore throat. She tells me that last night she had a mild sore throat that was worse upon waking up this morning. 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 She has also had strep many times in the past and states this feels the same. She has felt feverish since this morning, but has not taken her temperature. Nothing OTC for her symptoms. She is eating, drinking, and tolerating po well. Denies sinus symptoms, cough, rash, n/v. - History of Current Complaint Stated Complaint: SORE THROAT Time Seen by Provider: 02/10/19 18:01 Hx Obtained From: Patient Hx Last Menstrual Period: 04/27/18 Onset/Duration: Sudden Onset Severity: Moderate Pain Intensity: 7 Pain Scale Used: 0-10 Numeric - Allergies/Home Medications Allergies/Adverse Reactions: Allergies Allergy/AdvReac Type Severity Reaction Status Date / Time No Known Allergies Allergy Verified 02/10/19 18:02 Home Medications: Home Medications Sertraline* [Zoloft*] 50 mg PO DAILY 02/10/19 [History Confirmed 02/10/19] PMH/Surg Hx/FS Hx/Imm Hx Psychological History: Anxiety, Depression Other History Of: Negative For: Anticoagulant Therapy - Surgical History Surgical History: None Surgery Procedure, Year, and Place: denies - Family History Known Family History: Positive: Diabetes - Social History Occupation: Employed Full-time Lives: With Family Alcohol Use: None Substance Use Type: None Smoking Status (MU): Never Smoked Tobacco - Immunization History Most Recent Tetanus Shot: UTD Review of Systems All Other Systems Reviewed And Are Negative: No Constitutional: Positive: Negative Skin: Positive: Negative Eyes: Positive: Negative ENT: Positive: Sore Throat Respiratory: Positive: Negative Cardiovascular: Positive: Negative Gastrointestinal: Positive: Negative Neurovascular: Positive: Negative Neurological: Positive: Negative Psychological: Positive: Negative Physical Exam - Summary Physical Exam Summary: GENERAL: NAD. WDWN. No pain distress. SKIN: No rashes, sores, lesions, or open wounds. HEENT: Head: AT/NC Eyes: Conjunctiva clear without inflammation or discharge. Ears: Hearing grossly normal. TMs intact, no bulging, erythema, or edema. Nose: Nasal mucosa pink and moist. NTTP maxillary and frontal sinus. Throat: Posterior oropharynx mild erythema and 2+ tonsillar enlargement. No exudates. Uvula midline. No hoarse voice or muffled voice. NECK: Supple. Nontender. No lymphadenopathy. CHEST: CTAB. No r/r/w. No accessory muscle use. Breathing comfortably and in no distress. CV: RRR.. Pulses intact. Cap refill <2seconds NEURO: Alert. PSYCH: Age appropriate behavior. Triage Information Reviewed: Yes Vital Signs: Vital Signs: Temp Pulse Resp BP Pulse Ox 99.2 F 116 16 109/70 96 02/10/19 17:58 02/10/19 17:58 02/10/19 17:58 02/10/19 17:58 02/10/19 17:58 Vital Signs Reviewed: Yes Throat Pain/Nasal Course/Dx - Course Course Of Treatment: Pt declined strep testing today. Given history, exam, and recent exposure - will treat for strep at this time. - Differential Dx/Diagnosis Provider Diagnosis: Strep throat Discharge ED - Sign-Out/Discharge Documenting (check all that apply): Patient Departure All imaging exams completed and their final reports reviewed: No Studies - Discharge Plan Condition: Stable Disposition: HOME Prescriptions: Amoxicillin PO (*) [Amoxicillin 500 MG CAP*] 500 mg PO Q12H #20 cap Patient Education Materials: Strep Throat (ED) Forms: *Work Release Referrals: Joanne Fuentes MD [Primary Care Provider] - Additional Instructions: If you develop a fever, shortness of breath, chest pain, new or worsening symptoms - please call your PCP or go to the ED immediately. - Billing Disposition and Condition Condition: STABLE Disposition: Home
[2019-02-10 18:02] VITALS: BP 109/70
== END 2019-02-10 18:30 | disposition home or self-care (01) ==
LOC: UCEAST 17:13
DX: J02.0 Streptococcal pharyngitis (principal); F41.9 Anxiety disorder, unspecified; F32.9 Major depressive disorder, single episode, unspecified; Z79.899 Other long term (current) drug therapy
CPT/HCPCS: 99212; G0463

== ENCOUNTER 2019-03-04 10:07 | Emergency (ER) | payer OTHER, BC ==
--- NOTE | 2019-03-04 11:24 | UC ---
Throat Pain/Nasal Leonard HPI - HPI Summary HPI Summary: 23 yo female presents with URI symptoms. She tells me that about a month ago she had strep throat - gets this alot and has seen ENT in the past and was told she needs her tonsils removed. Was treated with amoxicillin and felt better. Over the last 4-5 days has had a sore throat again and a dry cough. Has felt feverish, but has not taken her temperature. Eating, drinking, and tolerating po well. Denies rash, abdominal pain, n/v. - History of Current Complaint Stated Complaint: SORE THROAT, COUGH Time Seen by Provider: 03/04/19 11:23 Hx Obtained From: Patient Hx Last Menstrual Period: 04/27/18 Onset/Duration: Sudden Onset Severity: Moderate Pain Intensity: 5 Pain Scale Used: 0-10 Numeric - Allergies/Home Medications Allergies/Adverse Reactions: Allergies Allergy/AdvReac Type Severity Reaction Status Date / Time No Known Allergies Allergy Verified 03/04/19 11:26 Home Medications: Home Medications Ibuprofen 800 mg PO ONCE PRN 03/04/19 [History Confirmed 03/04/19] PMH/Surg Hx/FS Hx/Imm Hx Psychological History: Anxiety, Depression Other History Of: Negative For: Anticoagulant Therapy - Surgical History Surgical History: None Surgery Procedure, Year, and Place: denies - Family History Known Family History: Positive: Diabetes - Social History Lives: With Family Alcohol Use: None Substance Use Type: None Smoking Status (MU): Never Smoked Tobacco - Immunization History Most Recent Tetanus Shot: UTD Review of Systems All Other Systems Reviewed And Are Negative: No Constitutional: Positive: Negative Skin: Positive: Negative Eyes: Positive: Negative ENT: Positive: Sore Throat Respiratory: Positive: Cough Cardiovascular: Positive: Negative Gastrointestinal: Positive: Negative Neurological: Positive: Negative Psychological: Positive: Negative Physical Exam - Summary Physical Exam Summary: GENERAL: NAD. WDWN. No pain distress. SKIN: No rashes, sores, lesions, or open wounds. HEENT: Head: AT/NC Eyes: Conjunctiva clear without inflammation or discharge. Ears: Hearing grossly normal. TMs intact, no bulging, erythema, or edema. Nose: Nasal mucosa pink and moist. NTTP maxillary and frontal sinus. Throat: Posterior oropharynx mild erythema and 2+ tonsillar enlargement. No exudates. Uvula midline. No hoarse voice or muffled voice. NECK: Supple. Left tonsillar LAD mildly TTP CHEST: CTAB. No r/r/w. No accessory muscle use. Breathing comfortably and in no distress. CV: RRR.. Pulses intact. Cap refill <2seconds NEURO: Alert. PSYCH: Age appropriate behavior. Triage Information Reviewed: Yes Vital Signs: Vital Signs: Temp Pulse Resp BP Pulse Ox 97.5 F 83 18 125/77 98 03/04/19 11:22 03/04/19 11:22 03/04/19 11:22 03/04/19 11:22 03/04/19 11:22 Laboratory Tests 03/04/19 11:42 Group A Strep Rapid Positive A Vital Signs Reviewed: Yes Throat Pain/Nasal Course/Dx - Course Course Of Treatment: POC strep positive. Possible re-infection or carrier status. Will treat with Augmentin given her recent use of amoxicillin for strep. She has seen ENT in the past for her strep throat - recommend scheduling an appt for further eval. - Differential Dx/Diagnosis Provider Diagnosis: Strep throat Discharge ED - Sign-Out/Discharge Documenting (check all that apply): Patient Departure All imaging exams completed and their final reports reviewed: No Studies - Discharge Plan Condition: Stable Disposition: HOME Prescriptions: Amoxicillin/Clavulanate TAB* [Augmentin TAB 875*] 875 mg PO BID #20 tab Patient Education Materials: Strep Throat (ED) Referrals: Joanne Fuentes MD [Primary Care Provider] - Ivan Nazario MD [Medical Doctor] - As Soon As Possible Additional Instructions: If you develop a fever, shortness of breath, chest pain, new or worsening symptoms - please call your PCP or go to the ED immediately. Please reschedule your appointment with ENT for further evaluation and treatment of your recurring strep throat - Billing Disposition and Condition Condition: STABLE Disposition: Home
[2019-03-04 11:26] VITALS: BP 125/77
== END 2019-03-04 12:03 | disposition home or self-care (01) ==
LOC: UCEAST 10:07
DX: J02.0 Streptococcal pharyngitis (principal)
CPT/HCPCS: 87651; 99212; G0463